=== PATIENT | male | born 1980 | race Caucasian/White ===

== ENCOUNTER 2016-07-22 16:53 | Emergency (ER) | payer OTHER ==
[2016-07-22 17:02] VITALS: BP 151/71; PULSE 72; TEMP 98.2; BMI 27.3
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
== END 2016-07-22 18:01 | disposition home or self-care (01) ==
LOC: JERFT 16:53
DX: M54.5 Low back pain (principal); V43.62XA Car passenger injured in collision with other type car in traffic accident, initial encounter; Y93.89 Activity, other specified; Y92.410 Unspecified street and highway as the place of occurrence of the external cause; Y99.0 Civilian activity done for income or pay; J45.909 Unspecified asthma, uncomplicated
CPT/HCPCS: 99281-25

== ENCOUNTER 2018-11-15 21:37 | Emergency (ER) | payer OTHER ==
[2018-11-15 22:03] VITALS: BP 141/91; PULSE 78; TEMP 98; BMI 29.8
[2018-11-15] MEDS ORDERED: IBUPROFEN 400 MG TABLET (FP) PO ONE ×2 (22:12→22:34)
--- NOTE | 2018-11-15 23:08 | PDOC ---
History of Present Illness - General Chief Complaint: Injury Stated Complaint: [employer] Time Seen by Provider: 11/15/18 22:03 History Source: Patient Exam Limitations: No Limitations Past History - Past Medical History Allergies/Adverse Reactions: Allergies Allergy/AdvReac Type Severity Reaction Status Date / Time No Known Allergies Allergy Verified 11/15/18 22:03 Home Medications: Ambulatory Orders NK [No Known Home Medication] 07/22/16 Anemia: No Asthma: No Cancer: No Cardiac Disorders: No CVA: No COPD: No CHF: No DVT: No Dementia: No Diabetes: No Dialysis: No GI Disorders: No Disorders: No HTN: No Hypercholesterolemia: No Kidney Stones: No Liver Disease: No Psychiatric Problems: No Seizures: No - Surgical History Appendectomy: Yes (1995) - Immunization History Td Vaccination: (up to date) Immunization Up to Date: Yes - Suicide/Smoking/Psychosocial Hx Smoking Status: No Smoking History: Unknown if ever smoked Years of Tobacco Use: 0 Have you smoked in the past 12 months: No Number of Cigarettes Smoked Daily: 0 Cigars Per Day: 0 Information on smoking cessation initiated: No Hx Alcohol Use: No Drug/Substance Use Hx: No Substance Use Type: None Trauma Specific PMHX - Complaint Specific PMHX Arthritis: No Back Injury: No Neck Injury: No Hx Sacro Iliac Joint Dysfunction: No *Physical Exam - Vital Signs Last Vital Signs Temp Pulse Resp BP Pulse Ox 98.0 F 78 16 141/91 100 11/15/18 22:01 11/15/18 22:01 11/15/18 22:01 11/15/18 22:01 11/15/18 22:01 - Physical Exam General Appearance: No: Apparent Distress Musculoskeletal: positive: Other (+swelling along R 5th MCP with TTP along joint , no malrotation noted, FROM of R wrist, no snuffbox tenderness, FROM of R elbow ) Extremity: positive: Normal Capillary Refill Integumentary: positive: Normal Color Neurologic: positive: Alert, Normal Mood/Affect Procedures - Splinting Splint Location: Right: Hand Pre-Proc Neuro Vasc Exam: normal Hand-Made Type: orthoglass Splint Type: Yes: Ulnar Post-Proc Neuro Vasc Exam: normal Delfino Bandage: yes ED Treatment Course - RADIOLOGY Radiology Studies Ordered: Category Date Time Status HAND- RIGHT [RAD] Stat Radiology 11/15/18 22:12 Taken - Medications Given in the ED: ED Medications Discontinued Medications Generic Name Dose Route Start Last Admin Trade Name Ani PRN Reason Stop Dose Admin Ibuprofen 800 mg 11/15/18 22:12 11/15/18 22:41 Motrin - PO 11/15/18 22:13 800 mg ONCE ONE Administration Medical Decision Making - Medical Decision Making 38 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 Did not fall down the stairs. No head trauma or other injuries occurred. Denies other complaints R hand xray shows R 5th MCP fracture, nondisplaced Placed in ulnar gutter splint Stable for dc 11/15/18 23:05 *DC/Admit/Observation/Transfer Diagnosis at time of Disposition: Fracture of metacarpal of right hand, closed Qualifiers: Encounter type: initial encounter Metacarpal bone: fifth Metacarpal location: neck Fracture alignment: nondisplaced Qualified Code(s): S62.366A - Nondisplaced fracture of neck of fifth metacarpal bone, right hand, initial encounter for closed fracture - Discharge Dispostion Disposition: HOME Condition at time of disposition: Stable Decision to Admit order: No - Referrals Referrals: Joe Gao DO [Staff Physician] - 2 Days - Patient Instructions Printed Discharge Instructions: DI for a Hand Fracture Additional Instructions: Thank you for choosing [facility]. It was a pleasure taking care of you. You may take Motrin 600 mg every 4 hours by mouth as needed for mild to moderate pain. Take Motrin with food. You were noted with fracture along right hand for which splint was placed Please follow-up in orthopedic clinic for further evaluation Return to the Emergency Department if your symptoms worsen or persist or have other concerning symptoms. - Post Discharge Activity
--- NOTE | 2018-11-15 23:41 | PDOC ---
*Physical Exam - Vital Signs Last Vital Signs Temp Pulse Resp BP Pulse Ox 98.0 F 78 16 141/91 100 11/15/18 22:01 11/15/18 22:01 11/15/18 22:01 11/15/18 22:01 11/15/18 22:01 ED Treatment Course - Medications Given in the ED: ED Medications Discontinued Medications Generic Name Dose Route Start Last Admin Trade Name Ani PRN Reason Stop Dose Admin Ibuprofen 800 mg 11/15/18 22:12 11/15/18 22:41 Motrin - PO 11/15/18 22:13 800 mg ONCE ONE Administration Medical Decision Making - Medical Decision Making 11/15/18 23:41 Case reviewed with MARILYN Funk Agree with assessment and plan *DC/Admit/Observation/Transfer Diagnosis at time of Disposition: Fracture of metacarpal of right hand, closed Qualifiers: Encounter type: initial encounter Metacarpal bone: fifth Metacarpal location: neck Fracture alignment: nondisplaced Qualified Code(s): S62.366A - Nondisplaced fracture of neck of fifth metacarpal bone, right hand, initial encounter for closed fracture - Discharge Dispostion Disposition: HOME Condition at time of disposition: Stable - Referrals Referrals: Joe Gao DO [Staff Physician] - 2 Days - Patient Instructions Printed Discharge Instructions: DI for a Hand Fracture Additional Instructions: Thank you for choosing [facility]. It was a pleasure taking care of you. You may take Motrin 600 mg every 4 hours by mouth as needed for mild to moderate pain. Take Motrin with food. You were noted with fracture along right hand for which splint was placed Please follow-up in orthopedic clinic for further evaluation Return to the Emergency Department if your symptoms worsen or persist or have other concerning symptoms. - Post Discharge Activity
== END 2018-11-15 23:22 | disposition home or self-care (01) ==
LOC: JER 21:37
PROC: 2W3CX1Z Immobilization of Right Lower Arm using Splint (ICD-10-PCS; principal; 2018-11-15)
DX: S62.366A Nondisplaced fracture of neck of fifth metacarpal bone, right hand, initial encounter for closed fracture (principal); W01.198A Fall on same level from slipping, tripping and stumbling with subsequent striking against other object, initial encounter; Y93.89 Activity, other specified; Y92.89 Other specified places as the place of occurrence of the external cause; Y99.0 Civilian activity done for income or pay
CPT/HCPCS: 73130-TC-RT-FY; 99282-25